=== PATIENT | female | born 1950 | race Caucasian/White ===

== ENCOUNTER → 2020-09-04 | Outpatient (CLI) | payer MEDICARE ==
[2014-03-07 11:00] VITALS: BP 128/89
[~2020-09-04] MED LIST: ALPR0.25 PO; ASCO100019 PO; CALC500T54 PO; ESTR0.45 PO; ESTR0.753 PO; LACT1CAP8 PO; MULT-246 PO; OMEP20CA5 PO; VITA100020 PO
--- NOTE | 2020-09-07 18:03 | KCIC ---
BILATERAL SCREENING MAMMOGRAM, 3-D History: Routine screening. Comparison: Bilateral mammogram June 18, 2019 [facility]. Technique: MLO and CC digital tomosynthesis (3D) images obtained. Radiologist reviewed these images on dedicated workstation. Findings: Breast Tissue Density B : There are scattered areas of fibroglandular density. Small intramammary lymph nodes lower inner right breast. Mild arterial calcifications. There are no dominant masses, suspicious microcalcifications or architectural distortion. IMPRESSION: No mammographic evidence of malignancy. Recommend routine screening. BI-RADS category 2: Benign findings. The images were reviewed with computer-aided detection. Patient information is entered into reminder system with a target due date for the next screening mammogram. Mammography is the most sensitive method for finding small breast cancers, but it does not detect them all and is not a substitute for careful clinical examination. A negative mammogram does not negate a clinically suspicious finding and should not result in delay in biopsying a clinically suspicious abnormality. "Our facility is accredited by the [employer] Mammography Program." Electronically signed by: Leandro Breaux MD (09/07/2020 5:59 PM) [id number]
== END ==
LOC: KCIC MAMMO 12:32
PROVIDERS: ATTEND Family Medicine
DX: Z12.31 Encounter for screening mammogram for malignant neoplasm of breast (principal)
CPT/HCPCS: 77063; 77067

== ENCOUNTER → 2020-10-16 | Outpatient (CLI) | payer MEDICARE ==
[2014-03-07 11:00] VITALS: BP 128/89
[~2020-10-16] MED LIST changes: +IBUP-1007 PO; +LOSA-73 PO; +LOVA20TA2 PO; +TRAM50TA PO; +VALA10005 PO
--- NOTE | 2020-10-16 17:09 | KCIC ---
MRI of the lumbar spine without contrast 10/16/2020 CLINICAL HISTORY: Low back pain which radiates down the left leg for one month. TECHNIQUE: Unenhanced T1-weighted and T2-weighted sagittal and axial and inversion recovery sagittal images of the lumbar spine were obtained. FINDINGS: Minimal S-shaped curvature of the thoracolumbar spine is seen. Degenerative signal changes are seen involving all of the disks of the lumbar spine. Degenerative signal changes are seen within the marrow surrounding these discs. The distal spinal cord extends inferiorly throughout the lumbar spine extending to the superior L5 le fernie consistent with a tethered spinal cord. 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 This is incompletely visualized on this study but me asures at least 2.6 cm in size. No spinal dysraphism is seen. No abnormal signal intensity is seen in volving the visualized spinal cord. At the L1-2 disc space there is a mild generalized disc bulge. Degenerative changes are seen involvin g the facet joints bilaterally. There is mild ligamentum flavum hypertrophy bilaterally. These findin gs when combined do not result in significant central spinal canal or neural foraminal stenosis. At the L2-3 disc space there is a mild to moderate generalized disc bulge. Degenerative changes are s een involving the facet joints bilaterally. There is mild ligament flavum hypertrophy bilaterally. Th monico findings when combined do not result in significant central spinal canal or neural foraminal sten osis. At the L3-4 disc space there is a mild to moderate generalized disc bulge. Degenerative changes are s een involving the facet joints bilaterally. There is mild ligamentum flavum hypertrophy bilaterally. These findings when combined do not result in significant central spinal canal or neural foraminal st enosis. At the L4-5 disc space is a mild generalized disc bulge. Degenerative changes are seen involving the facet joints bilaterally. There is mild to moderate ligamentum flavum hypertrophy bilaterally. These findings when combined do not result in significant central spinal canal or neural foraminal stenosis . At the L5-S1 disc space there is a mild generalized disc bulge. This is eccentric to the left. Degene rative changes are seen involving the facet joints bilaterally. There is mild ligamentum flavum hyper trophy bilaterally. These findings when combined do not result in significant central spinal canal st enosis. Mild left neural foraminal stenosis is seen. The right neural foramen is patent. IMPRESSION: 1. 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 The inferio r extent of this lipoma is not included on this study. No spinal dysraphism is seen. 2. The changes of degenerative disc disease are seen throughout the lumbar spine. These findings do n ot result in significant central spinal canal stenosis at any level. No neural foraminal stenosis is seen. Electronically signed by: Thomas Nails MD (10/16/2020 5:06 PM) [id number]
== END ==
LOC: KCIC MRI 15:13
PROVIDERS: ATTEND Family Medicine
DX: M47.26 Other spondylosis with radiculopathy, lumbar region (principal); M48.061 Spinal stenosis, lumbar region without neurogenic claudication
CPT/HCPCS: 72148

== ENCOUNTER → 2020-10-25 | Outpatient (CLI) | payer MEDICARE ==
[2014-03-07 11:00] VITALS: BP 128/89
[~2020-10-25] MED LIST changes: +IOHEXOL 180 MG/ML 10 ML VIAL. ONE; +methylPREDNISolone ACETATE 40 MG/ML VIAL. ONE; +methylPREDNISolone ACETATE 80 MG/ML VIAL. ONE
--- NOTE | 2020-10-25 12:29 | PDOC1 ---
INITIAL PAIN CONSULT DATE OF SERVICE: DOS: DATE: 10/25/20 TIME: 12:23 CHIEF COMPLAINT: Chief Complaint: Low back and left lower extremity pain HISTORY OF PRESENT ILLNESS: 70-year-old female presents with history of pain low back left lower extremity for about 2 months now increasing after some recent activity increase with moving and preparing to move from her home to new home in [place]. Patient reports that she is been packing and standing on her feet for prolonged periods walking extended distances climbing stairs etc. this caused the pain to become much worse. Patient ports pain is in the low back and radiating left lower extremity mostly in the posterior lateral aspect of the thigh and calf medially on the left side radiates the medial thigh anterior thigh as well as the calf medially and posteriorly. Patient reports worse with walking standing climbing stairs changing positions standing for prolonged periods greater than 20 to 30 minutes patient reports it wakes her from sleep about twice a night now does not affect her bowel bladder control does affect her ability to walk which she feels she is limping and favoring the left lower extremity. Patient not use any assistive devices however. Patient has had chiropractic treatment which was helpful to some extent but only limited as well as a trigger point injection at her primary care physician's office which was mildly helpful temporarily as well patient has been taking ibuprofen 600 mg 3 times a day which does decrease the pain by about 20% also tramadol which decreases by about 40%. Patient did have MRI scan of the lumbar spine showing tethered spinal cord the superior L5 level lipoma involving the filum terminale changes of degenerative disc disease throughout the lumbar spine without any significant central spinal canal stenosi s L4-5 shows mild generalized disc bulges as does L3-4 L2-3 and L5-S1. Patient rates her disability rating 0-10 10 being the worst is a 3 with family home responsibilities self-care and life support activities and 0 and recreation social activity and sexual behavior. She reports no loss of motor function but significant fatigability of the left leg with standing and walking. PAST MEDICAL HISTORY: PMH: Arthritis, hypertension skin cancer PREVIOUS SURGERIES: Past Surgical Hx: Hysterectomy, bladder lift CURRENT MEDICATIONS: Current Meds: Active Scripts Medications Dose Route/Sig Max Daily Dose Days Date Category Ibuprofen 600 Mg Tablet 600 Mg PO PRN Q6HRS PRN 10/25/20 Reported Tramadol Hcl 50 Mg Tablet 50 Mg PO DAILY PRN 10/25/20 Reported Losartan Potassium 50 Mg Tablet Unknown Dose PO DAILY 10/25/20 Reported Lovastatin 20 Mg Tablet Unknown Dose PO HS 10/25/20 Reported Prilosec (Omeprazole) 20 Mg Capsule.dr 20 Mg PO DAILY 03/07/14 Rx Estropipate 0.75 Mg Tablet 0.75 Mg PO DAILY 03/07/14 Reported Multi-Vitamin Daily (Multivitamin) 1 Each Tablet 1 Each PO DAILY 03/07/14 Reported Calcium (Calcium Carbonate) 500 Mg Tab.chew 600 Mg PO DAILY 03/06/14 Reported Vitamin E (Vitamin E Mixed) 1,000 Unit Capsule 400 Unit PO DAILY 03/06/14 Reported Vitamin C (Ascorbic Acid) 1,000 Mg Tablet 500 Mg PO DAILY 03/06/14 Reported Probiotic (Lactobacillus Combo No.11) 1 Each Cap.sprink 1 Each PO DAILY 03/06/14 Reported ALLERGIES; Allergies: Coded Allergies: codeine (Unverified Allergy, Unknown, Nausea, 03/06/14) FAMILY HISTORY: Family Hx: Cancers SOCIAL HISTORY: Social Hx: Patient drinks alcohol twice a week on average does not smoke not use any illegal illicit recreational drugs is lives with her spouse lives locally in [facility] is relocating to [place] in approximately 1 week. REVIEW OF SYSTEMS: ROS: Positive for those items mentioned in history of present illness, all systems are reviewed, otherwise negative ,and are complete full and well-documented on patient's chart. PHYSICAL EXAM: VS: Blood pressure is 159/99 pulse 78 respirations 18 temperature 96.7 F height is 5 feet 2 inches weight is 1 7 1 pounds PE: PHYSICAL EXAMINATION: GENERAL: The patient is awake, alert, oriented, appropriate, very pleasant demeanor HEENT: Shows normocephalic, atraumatic. Extraocular movements are intact and symmetrical. Oral cavity: Mucous membranes moist and pink. Dentition is intact. NECK: Shows anterior throat supple without palpable lymphadenopathy noted. Swallow reflex symmetrical. CHEST: Shows normal on inspection. Breath sounds are clear bilaterally, no rales rhonchi wheezes. HEART: Shows S1, S2 clear. No murmurs auscultated. ABDOMEN: Soft, nontender, nondistended, obese. No palpable organomegaly is noted. No rebound or guarding demonstrated. BACK: Shows spine grossly in the midline. Normal-appearing cervical lordotic curvature. There is increased thoracic kyphosis, some minor flattening of the lumbar lordotic curvature. Lumbar paraspinous muscles show symmetrical on inspection, on palpation shows some moderate tenderness diffusely throughout the upper, middle and lower distribution of the paraspinous muscles bilaterally and also into the lower thoracic paraspinous musculature, firm and tender, but without specific trigger points, without radiation of pain. The patient has good rotational motion of the lumbar spine, both laterally as well as extension and flexion without significant difficulty. No tenderness over the spinous processes, sacrum or sacroiliac regions. EXTREMITIES: Lower extremities show deep tendon reflexes 2+ in the patellar and tendo calcaneus tendons. Motor exam is 5 on a scale of 5 with right dorsiflexion, extension, quadriceps and hamstring flexion and 4/5 on the left. Peripheral pulses are 1+ posterior tibial. No peripheral edema is noted bilaterally. Lower extremities are warm and dry to touch, equal in color and appearance. Straight leg raise noted to be negative bilaterally. Gaenslen's and Jae's maneuvers are negative bilaterally as well. The patient is able to stand, stand on toes without significant difficulty or loss of balance walks with a slight favoring gait does appear to favor the left lower extremity but does not use any assistive devices to ambulate. SKIN: Shows warm and dry, good turgor. No edema. No sores, rashes or bruising throughout. IMPRESSION: Impression: 70-year-old female with 2-month history increasing pain left low back and left lower extremity in a radicular fashion MRI scan lumbar spine as noted Arthritis Hypertension Plan: Options were discussed with the patient including conservative medical management physical therapies and interventional techniques. Patient would like to pursue interventional techniques. We discussed a lumbar epidural steroid injection using description as well as anatomical models to describe the procedure. Risks were discussed including but not limited to: Bleeding, inf ection, possibility of epidural hematoma and subsequent neurological compromise, dural puncture, headaches, spinal cord and/or nerve damage, side effects of steroid medication, and poor results regarding pain control. Patient understands and wished to proceed. Patient will return to clinic in approximate 2 weeks or as necessary, as she is relocating. Procedure is lumbar epidural steroid injection under local anesthetic using sterile prep and drape at the L4-5 level using C-arm fluoroscopic guidance in kilo th AP and lateral views medications injected is 120 mg Depo-Medrol + 10 mL preservative-free normal saline and 2 mL contrast- condition at discharge is stable patient tolerated procedure well had no complications. XENIA NEVAREZ MD Oct 25, 2020 12:29
--- NOTE | 2020-10-25 12:30 | PDOC4 ---
PROCEDURE Procedure Patient was consented for lumbar epidural steroid injection. Risks were dis cussed including but not limited to: Bleeding, infection, possibility of epidural hematoma and subsequent neurological compromise, dural puncture, headaches, spinal cord and/or nerve damage, side effects of steroid medication, and poor results regarding pain control. Patient understands and wished to proceed. Procedure is lumbar epidural steroid injection under local anesthetic using sterile prep and drape at the L4-5 level using C-arm fluoroscopic guidance in both AP and lateral views medications injected is 120 mg Depo-Medrol + 10 mL preservative-free normal saline and 2 mL contrast- condition at discharge is stable patient tolerated procedure well had no complications. XENIA NEVAREZ MD Oct 25, 2020 12:30
== END | disposition home or self-care (01) ==
LOC: PNCL 10:26
PROVIDERS: ATTEND Anesthesiology
DX: M54.5 Low back pain (principal); M79.605 Pain in left leg; M19.90 Unspecified osteoarthritis, unspecified site; I10 Essential (primary) hypertension; F41.9 Anxiety disorder, unspecified; Z85.828 Personal history of other malignant neoplasm of skin; Z90.710 Acquired absence of both cervix and uterus; Z98.890 Other specified postprocedural states; Z79.899 Other long term (current) drug therapy; Z88.6 Allergy status to analgesic agent; Z87.891 Personal history of nicotine dependence; Z72.89 Other problems related to lifestyle; Z82.49 Family history of ischemic heart disease and other diseases of the circulatory system; Z83.3 Family history of diabetes mellitus; Z80.3 Family history of malignant neoplasm of breast
CPT/HCPCS: 62323; J1030; J1040; Q9965